=== PATIENT | male | born 1960 | race African-American/Black ===

== ENCOUNTER 2017-04-09 13:06 | Emergency (ER) | payer OTHER ==
[2017-04-09] MEDS ORDERED: LIDOCAINE 1% INJ-PF (10 MG/ML) 30 ML SDV INJ ONE (13:20)
--- NOTE | 2017-04-09 13:21 | ER Document Report ---
HPI - HPI Pain Level: 1 Notes: Patient is a 56-year-old male who presents the ED with a finger laceration to his right index that occurred prior to arrival. Patient states that he cut his finger on a ceramic bowl. Patient states that he does not believe the laceration is deep, and can still move his finger without any difficulties. Patient states that he just had trouble with the bleeding which is what brought him in. Patient is not sure when his last tetanus was. He denies being on any blood thinners. He denies any other significant medical history. Denies any drug allergies. Patient admits to smoking but denies IV drug use. Patient states that he does have some soreness to the area, but that does not radiate. He has no numbness or tingling. Denies any headache, fever, chest pain, palpitations, syncope, cough, shortness of breath, wheeze, dyspnea, abdominal pain, nausea/vomiting/diarrhea, muscle paralysis/weakness, or rash. - ROS Notes: REVIEW OF SYSTEMS: CONSTITUTIONAL : Denies fever, chills, or sweats. Denies recent illness. EENT: Denies eye, ear, throat, or mouth pain or symptoms. Denies nasal or sinus congestion or discharge. Denies throat, tongue, or mouth swelling or difficulty swallowing. CARDIOVASCULAR: Denies chest pain. Denies palpitations or racing or irregular heart beat. RESPIRATORY: Denies cough, cold, or chest congestion. Denies shortness of breath, difficulty breathing, or wheezing. GASTROINTESTINAL: Denies abdominal pain or distention. Denies nausea, vomiting , or diarrhea. Denies blood in vomitus, stools, or per rectum. Denies black, tarry stools. Denies constipation. GENITOURINARY: Denies difficulty urinating, painful urination, burning, frequency, blood in urine, or discharge. MUSCULOSKELETAL: see hpi SKIN: see hpi NEUROLOGICAL: Denies confusion or altered mental status. Denies passing out or loss of consciousness. Denies dizziness or lightheadedness. Denies headache. Denies weakness or paralysis or loss of use of either side. Denies problems with gait or speech. Denies sensory loss, numbness, or tingling. ALL OTHER SYSTEMS REVIEWED AND NEGATIVE. Dictation was performed using [employer] recognition software - DERM Skin Color: Normal Past Medical History - Social History Smoking Status: Unknown if Ever Smoked Family History: Reviewed & Not Pertinent Patient has suicidal ideation: No Patient has homicidal ideation: No Renal/ Medical History: Denies: Hx Peritoneal Dialysis Vertical Provider Document - CONSTITUTIONAL Agree With Documented VS: Yes Notes: PHYSICAL EXAMINATION: GENERAL: Well-appearing, well-nourished and in no acute distress. LUNGS: Breath sounds clear to auscultation bilaterally and equal. No wheezes rales or rhonchi. HEART: Regular rate and rhythm without murmurs, rubs, gallops. Musculoskeletal: Rt hand/fingers: FROM to passive/active. Strength 5+/5. No focal deficits noted. N/V intact distal. Extremities: No cyanosis, clubbing, or edema b/l. Peripheral pulses 2+. Capillary refill less than 3 seconds. NEUROLOGICAL: Cranial nerves grossly intact. Normal speech, normal gait. Normal sensory, motor exams PSYCH: Normal mood, normal affect. SKIN: Rt index finger: there is a very narrow 1.5cm linear and very superficial laceration to the anterior aspect running distally across the DIP. - INFECTION CONTROL TRAVEL OUTSIDE OF THE [place] IN LAST 30 DAYS: No - RESPIRATORY O2 Sat by Pulse Oximetry: 98 Course - Re-evaluation Re-evalutation: 04/09/17 13:54 Patient is an afebrile, well-hydrated, 56-year-old male who presents the ED with a right index finger laceration. Vitals are stable. PE is otherwise unremarkable for any neurovascular compromise, obvious tendon/ligament rupture, obvious fracture or dislocation. The wound was thoroughly cleansed and irrigated and evaluated for any foreign body which yielded no results. No imaging warranted at this time as the wound is very superficial and there is no bony tenderness without evidence of any foreign body. Wound edges were approximated appropriately utilizing 3 simple interrupted sutures. Pt tolerated procedure well w/o complications. Wound dressing was placed and wound instructions were reviewed. Splint placed. I will send him with a prophylactic antibiotic of Keflex. Conservative measures for symptoms otherwise. The sutures will need removed in 10-12 days. Recheck with PCM in 2- 3 days. Return to the ED with any worsening/concerning symptoms otherwise as reviewed in discharge. Patient is in agreement. - Vital Signs Vital signs: Temp Pulse Resp BP Pulse Ox 98.1 F 96 16 146/71 H 98 04/09/17 13:14 04/09/17 13:14 04/09/17 13:14 04/09/17 13:14 04/09/17 13:14 Procedures - Immobilization Right 2nd digit Time completed: 13:50 Pre-Proc Neuro Vasc Exam: Normal Immobilizer type: Other - finger splint Performed by: PCT Post-Proc Neuro Vasc Exam: Normal, Unchanged from pre-exam - Laceration/Wound Repair Right 2nd digit Time completed: 13:45 Wound length (cm): 1.5 Wound's Depth, Shape: Superficial, Linear. No: Into muscle, Irregular, Flap, Stellate, Nail-avulsed, Contused tissue, Other Laceration pre-procedure: Sterile PPE donned, Sterile drapes applied, Other - chlorhexadine Anesthetic type: 1% Lidocaine Volume Anesthetic (mLs): 6 Wound explored: Clean, No foreign body removed Irrigated w/ Saline (mLs): 60 Wound Debrided: Minimal Wound Repaired With: Sutures Suture Size/Type: 5:0, Nylon Number of Sutures: 5 Layer Closure?: No Post-procedure wound care: Sterile dressing applied, Splint applied Post-procedure NV exam normal: Yes Complications: No Discharge - Discharge Clinical Impression: Laceration of right index finger Qualifiers: Encounter type: initial encounter Damage to nail status: without damage Foreign body presence: without foreign body Qualified Code(s): S61.210A - Laceration without foreign body of right index finger without damage to nail, initial encounter Condition: Stable Disposition: HOME, SELF-CARE Instructions: Antibiotic Ointment Protection ([facility]), Family Physicians / Practices, Laceration Care ([facility]), Prophylactic Antibiotic ([facility]), Soap Cleansing ([facility]), Tetanus Immunization Given ([facility]) Additional Instructions: Do not shower or bathe for 24 hours. After 24 hours you may shower but no submersion of the wound under water. Keep the original dressing on the wound for 24 hours unless the drainage soaks through. Change the dressing daily thereafter and keep the knots of the suture material clean from any dried discharge. You may leave the wound open to the air once there is no more discharge. Return to the ED and/or your PCM in 2-3 days for a recheck. Monitor for any signs of worsening pain or redness, purulent drainage, streaks, and/or fever. Return to the ED if noticing any of the above symptoms or as needed. Take medications as directed. Your sutures will need to be removed in 10-12 days. Prescriptions: Cephalexin Monohydrate [Keflex 500 mg Capsule] 500 mg PO BID #14 capsule Forms: Elevated Blood Pressure, Smoking Cessation Education Referrals: [facility] [Provider Group] - Follow up as needed [facility] [Provider Group] - Follow up as needed [facility] [Provider Group] - Follow up as needed
[2017-04-09] MEDS ORDERED: DIPH/PERTUSS(ACELL)/TETANUS VAC/PF 0.5 ML SYR (>=10YO) IM ONE (13:24)
[2017-04-09 14:25] VITALS: BP 154/87
== END 2017-04-09 14:16 | disposition home or self-care (01) ==
LOC: ER 13:06
DX: S61.210A Laceration without foreign body of right index finger without damage to nail, initial encounter (principal); W45.8XXA Other foreign body or object entering through skin, initial encounter; Y93.89 Activity, other specified; F17.200 Nicotine dependence, unspecified, uncomplicated
CPT/HCPCS: 99282; 90471; 90715; 12001; J3490

== ENCOUNTER 2017-12-05 16:02 | Emergency (ER) | payer SELFPAY ==
[2017-12-05 16:11] VITALS: BP 152/75
--- NOTE | 2017-12-05 16:28 | ER Document Report ---
HPI - HPI Patient complains to provider of: Something in my left foot Onset: Other - Several months Pain Level: 3 Context: 57-year-old nondiabetic states that he remembers stepping on something possibly several months ago he states that there is a black area on his left heel and hurts to walk on it he says there is something in his foot is almost absolutely sure that there is something in it. He has been walking on it a lot lately so he decided to come today to get it taken out. Associated Symptoms: None Exacerbated by: Walking Relieved by: Denies Similar symptoms previously: No Recently seen / treated by doctor: No - ROS ROS below otherwise negative: Yes Systems Reviewed and Negative: Yes All other systems reviewed and negative Past Medical History - General Information source: Patient - Social History Smoking Status: Current Every Day Smoker Frequency of alcohol use: None Drug Abuse: None Lives with: Family Family History: Reviewed & Not Pertinent - Medical History Medical History: Negative Renal/ Medical History: Denies: Hx Peritoneal Dialysis Surgical Hx: Negative - Immunizations Hx Diphtheria, Pertussis, Tetanus Vaccination: No - unknown last date Vertical Provider Document - CONSTITUTIONAL Agree With Documented VS: Yes Exam Limitations: No Limitations - INFECTION CONTROL TRAVEL OUTSIDE OF THE [place] IN LAST 30 DAYS: No - MUSCULOSKELETAL/EXTREMETIES Musculoskeletal/Extremeties: ESTEBAN, FROM, Tender - dark dry hyperkeratotic 5 mm lesion plantar left lateral heel - NEURO Level of Consciousness: Alert Course - Re-evaluation Re-evalutation: 12/05/17 17:18 No radiopaque foreign body per radiologist I will refer him to a value stream leader this may be a wart, non radiopaque FB or he may need a biopsy of the tissue. I will emphasize this to the patient that this is not something that we do in the emergency department. 12/05/17 17:20 12/05/17 17:24 - Vital Signs Vital signs: Temp Pulse Resp BP Pulse Ox 98.5 F 90 16 152/75 H 98 12/05/17 16:05 12/05/17 16:05 12/05/17 16:05 12/05/17 16:05 12/05/17 16:05 Discharge - Discharge Clinical Impression: Left heel lesion Condition: Good Disposition: HOME, SELF-CARE Additional Instructions: See the value stream leader about the lesion on the left heel It may need to be removed or biopsied Referrals: ANAT APODACA DPM [ACTIVE STAFF] - Follow up in 3-5 days
--- NOTE | 2017-12-05 16:55 | RADIOLOGY REPORT (SQ) ---
EXAM DESCRIPTION: FOOT LEFT COMPLETE COMPLETED DATE/TIME: 12/05/2017 4:42 pm REASON FOR STUDY: check for FB COMPARISON: None. NUMBER OF VIEWS: Three views. TECHNIQUE: AP, lateral and oblique radiographic images acquired of the left foot. LIMITATIONS: None. FINDINGS: MINERALIZATION: Normal. BONES: No acute fracture or dislocation. No worrisome bone lesions. JOINTS: Minor joint narrowing noted of the toes. SOFT TISSUES: No metallic/opaque foreign bodies identified. OTHER: Small plantar calcaneal spur. IMPRESSION: Nothing acute. TECHNICAL DOCUMENTATION: JOB ID: [id number] [employer]- All Rights Reserved Reading location - IP/workstation name: [email or web address]
== END 2017-12-05 17:25 | disposition home or self-care (01) ==
LOC: ER 16:02
DX: L98.8 Other specified disorders of the skin and subcutaneous tissue (principal); M79.672 Pain in left foot; F17.200 Nicotine dependence, unspecified, uncomplicated
CPT/HCPCS: 99283